=== PATIENT | female | born 1990 | race Caucasian/White ===

== ENCOUNTER 2018-08-01 13:31 | Emergency (ER) | payer SELFPAY ==
[~2018-08-01] VITALS: Ht 165.1 cm; Wt 52.2 kg
--- OUTSIDE RECORDS SUMMARY | 2018-08-01 13:37 | XMS REPORT | Continuity of Care Document ---
Author Author [facility] Address Unknown Phone Unavailable Allergies Active Description Code Type Severity Reaction Onset Reported/Identified Relationship to Patient Clinical Status Yes Penicillins Drug Allergy N/A N/A 06/21/2009 Medications There is no data. 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 Encounters ACCT No. Visit Date/Time Discharge Status Pt. Type Provider Facility Loc./Unit Complaint [id number] 03/19/2014 15:20:00 03/19/2014 23:59:59 CLS Outpatient PATRICIA BRUNO APRN
--- OUTSIDE RECORDS SUMMARY | 2018-08-01 13:37 | XMS REPORT ---
Author Author MANUEL KAUR Organization [employer] Address Unknown Phone Unavailable Care Team Providers Care Quality Assurance Project Manager Name Role Phone MANUEL KAUR CP Unavailable Allergies, Adverse Reactions, Alerts Substance Reaction Event Type Penicillin G Benzathine Info Not Available Drug Allergy Problems Problem Type Condition Code Onset Dates Condition Status Problem Counseling on substance use and abuse V65.42 Active Problem Routine gynecological examination V72.31 Active Problem Screening for malignant neoplasm of the cervix V76.2 Active Problem Screening examination for venereal disease V74.5 Active Assessment Dental examination Z01.20 Active Medications Medication Code System Code Instructions Start Date End Date Status Dosage [place] [facility] [address]-54 5-325 MG Orally every 6 hrs 1 tablet as needed Clindamycin HCl [facility] [address]-18 150 MG Orally every 6 hrs Apr 28, 2016 May 05, 2016 2 capsules Procedures Procedure Coding System Code Date INTRAORL-PERIAPICAL 1 FILM 25666 CPT-4 D0220 Apr 28, 2016 INTRAORL-PERIAPICAL EA ADD FILM CPT-4 D0230 Apr 28, 2016 LTD ORAL EVALUATION - PROBLEM FOCUS CPT-4 D0140 Apr 28, 2016 INTRAORL-PERIAPICAL EA ADD FILM CPT-4 D0230 Apr 28, 2016 Vital Signs Date/Time: Apr 28, 2016 Height 64 in Results No Known Results Summary Purpose [employer] Submission
--- NOTE | 2018-08-01 13:53 | ED EENT ---
History of Present Illness General Chief Complaint: Dental Problems/Pain Stated Complaint: MOUTH ABSCESS Nursing Triage Note: STATES SHE IS ON AMOXICILLIN FOR A WEEK DUE TO A DENTAL ABSCESS BUT STATES PAIN AND SWELLING OF THE FACE STARTED YESTERDAY. STATES SHE HAS BEEN TAKING IBUPORFEN FOR THE PAIN BUT IT IS NOT HELPING. Source: patient Exam Limitations: no limitations History of Present Illness Date Seen by Provider: Aug 01, 2018 Time Seen by Provider: 13:52 Initial Comments Patient is a 27-year-old female who presents to the emergency room with complaints of a left lower dental abscess and facial swelling. She reports that she went to [place] emergency room this morning but the wait was just long so she decided to come here. She's been on amoxicillin for 1 week due to dental abscess but she reports that yesterday she started to have left lower jaw/ facial pain and swelling in running a fever. She's been taking ibuprofen for pain but is not helping. Timing/Duration: last week Location: facial, dental Prearrival Treatment: over the counter meds, prescription meds Associated Symptoms: facial pain/swelling, fever, tooth pain Allergies and Home Medications Allergies Coded Allergies: Penicillins (Verified Allergy, Unknown, 08/01/18) Home Medications Cefuroxime Axetil 500 Mg Tablet, 500 MG PO BID Prescribed by: NUVIA FREITAS on 08/01/18 1602 Hydrocodone Bit/Acetaminophen 1 Tab Tab, 1 EACH PO Q6H PRN for PAIN-MODERATE Prescribed by: NUVIA FREITAS on 08/01/18 1602 Patient Home Medication List Home Medication List Reviewed: Yes Review of Systems Review of Systems Constitutional: see HPI, fever Eyes: No Symptoms Reported Ears: No Symptoms Reported Mouth: see HPI, pain, swelling (facial swelling) Throat: no symptoms reported Past Ldlnole-Iatlbw-Dcnkfd Hx Past Med/Social Hx: Reviewed Nursing Past Med/Soc Hx Patient Social History Recent Foreign Travel: No Contact w/Someone Who Travel: No Recent Infectious Disease Expo: No Recent Hopitalizations: No Seasonal Allergies Seasonal Allergies: No Past Medical History Surgeries: No Respiratory: No Cardiac: No Neurological: No Genitourinary: No Gastrointestinal: No Musculoskeletal: No Endocrine: No HEENT: No Cancer: No Psychosocial: No Integumentary: No Blood Disorders: No Family Medical History Reviewed Nursing Family Hx Physical Exam Vital Signs Vital Signs - First Documented 08/01/18 08/01/18 13:35 16:28 Temp 99.1 Pulse 93 Resp 16 B/P (MAP) 103/50 (67) Pulse Ox 100 O2 Delivery Room Air Height, Weight, BMI Height: 5'5.00" Weight: 115lbs. oz. 52.358076nd; BMI Method:Stated General Appearance: WD/WN, no apparent distress Eyes: bilateral eye normal inspection, bilateral eye PERRL, bilateral eye EOMI Ears: bilateral ear auricle normal, bilateral ear canal normal, bilateral ear TM normal Nose: normal inspection Mouth/Throat: pharynx normal, dental tenderness, other (numerous dental caries , absces to tooth left lower ) Neck: non-tender, full range of motion, supple, normal inspection Cardiovascular: normal peripheral pulses, regular rate, rhythm, no edema, no gallop, no JVD, no murmur Respiratory: chest non-tender, lungs clear, normal breath sounds, no respiratory distress, no accessory muscle use Neurologic/Psychiatric: alert, normal mood/affect, oriented x 3 Skin: normal color, warm/dry Progress/Results/Core Measures Results/Orders Lab Results My Orders Medications Given in ED Vital Signs/I&O Blood Pressure Mean: 67 Progress Progress Note : Time: 15:00 Progress Note I discussed the case with Dr. Whittaker and he agrees to see the patient in his office and switching the patient to ceftin for abx coverage. The patient agrees with plan of care, plans for discharge, return precautions were given. Diagnostic Imaging Diagonstic Imaging: CT Plain Films/CT/US/NM/MRI: other Comments NAME: [facility] REC#: [id number] PHYSICIAN: NUVIA FREITAS CC: NEYDA FREITAS BRUCE A MD Page 2 of 2 RADIOLOGY REPORT [facility] [place] CC: NEYDA FREITAS BRUCE A MD Page 1 of 1 RADIOLOGY REPORT NAME: [facility] REC#: [id number] PT STATUS: REG ER : 1990 PHYSICIAN: NUVIA FREITAS ADMIT DATE: 08/01/18/ER Signed Date of Exam: 08/01/18 CT NECK (SOFT TISSUE) W PROCEDURE: CT neck soft tissue with contrast. TECHNIQUE: Multiple contiguous axial images were obtained through the neck after the administration of contrast. INDICATION: Left-sided dental abscess. Antibiotic therapy x1 week. Increasing pain and swelling in the face starting yesterday. COMPARISON: None. FINDINGS: There are caries involving the left first through third mandibular molars, left second mandibular premolar, right maxillary second molar, and right first mandibular molar. There are also periapical lucencies about the left first mandibular molar and left second mandibular premolar. Periapical lucency about the right first mandibular molar. There is a peripherally enhancing fluid collection in the soft tissues about the left angle of the mouth and lateral lower lip, which measures approximately 1.0 x 0.6 x 0.8 cm. There are also mild inflammatory changes in the soft tissues about this fluid collection and anterior left mandible. There is no definite cortical breakthrough along the left mandible. The floor of the mouth, tongue base, and epiglottis are unremarkable. No retropharyngeal fluid collections. The pharyngeal and laryngeal soft tissues are symmetric bilaterally with no focal mass. Normal aerodigestive tract. No cervical lymphadenopathy. The thyroid and major salivary glands are unremarkable. The cervical carotid and vertebral arteries are grossly patent. The lung apices are clear. No acute osseous findings. The visualized paranasal sinuses, mastoids, and skull base are negative. IMPRESSION: 1. Peripherally enhancing fluid collection measuring up 1.0 cm in the soft tissues at the left angle of the mouth and lateral lower lip. Given the clinical scenario, findings are suspicious for an abscess. A cystic mass is not entirely excluded. 2. Multiple dental caries and periapical lucencies, detailed above. Dictated by: Dictated on workstation # [id number] Dict: 08/01/18 1518 Trans: 08/01/18 1618 Interpreted by: JEROMY CASTELLANO MD Electronically signed by: JEROMY CASTELLANO MD 08/01/18 1618 Reviewed: Reviewed by Me Departure Impression Primary Impression: Facial abscess Disposition: HOME, SELF-CARE Condition: Stable/Unchanged Departure-Patient Inst. Decision time for Depature: 15:57 Referrals: [facility] (PCP/Family) Primary Care Physician Patient Instructions: ABSCESS, Tooth Abscess (DC) Add. Discharge Instructions: Take medications as directed. May use additional Tylenol and ibuprofen as directed by the bottle not exceeding your daily limit of Tylenol. Follow-up with Dr. Patrice Whittaker's office tomorrow at 2:00PM for further evaluation. Return back to the emergency room for worsening symptoms or concerns as needed. All discharge instructions reviewed with patient and/or family. Voiced understanding. Scripts Hydrocodone Bit/Acetaminophen (Hydrocodone/Acetaminophen 5/325mg Tablet) 1 Tab Tab 1 EACH PO Q6H PRN for PAIN-MODERATE MDD 10, #10 TAB Prov: NUVIA FREITAS 08/01/18 Cefuroxime Axetil (Cefuroxime) 500 Mg Tablet 500 MG PO BID for 10 Days, #20 TAB Prov: NUVIA FREITAS 08/01/18 Work/School Note: Work Release Form Date Seen in the Emergency Department: Aug 01, 2018 Return to Work: Aug 03, 2018 Restrictions: No Restrictions Images Head/Face 1 - Swelling Mouth/Nose 1 - Caries, Swelling, Tenderness NUVIA FREITAS Aug 01, 2018 13:53
[2018-08-01] MEDS ORDERED: IOHEXOL 350 MG/ML 100 ML (OMNIPAQUE 350) VIAL IV ONE (14:15)
[2018-08-01] MEDS ORDERED: RECEIVED CONTRAST (Hold Metformin) IV SCH (14:15)
[2018-08-01] MEDS ORDERED: NS 250 ML (IVPB) BAG IV ONE (14:15)
[2018-08-01 14:20] LABS: BASOPHILS % (AUTO) 0 % (0-10); EOSINOPHILS % (AUTO) 0 % (0-10); HEMATOCRIT 38 % (35-52); HEMOGLOBIN 13.1 G/DL (11.5-16.0); LYMPHOCYTES # (AUTO) 0.5 X 10^3 (1.0-4.0); LYMPHOCYTES % (AUTO) 7 % (12-44); MEAN CORPUSCULAR HEMOGLOBIN 31 PG (25-34); MEAN CORPUSCULAR HGB CONC 34 G/DL (32-36); MEAN CORPUSCULAR VOLUME 90 FL (80-99); MEAN PLATELET VOLUME 9.6 FL (7.4-10.4); MONOCYTES # (AUTO) 0.3 X 10^3 (0.0-1.0); MONOCYTES % (AUTO) 5 % (0-12); NEUTROPHILS # (AUTO) 5.4 X 10^3 (1.8-7.8); NEUTROPHILS % (AUTO) 88 % (42-75); PLATELET COUNT 229 10^3/uL (130-400); RED BLOOD COUNT 4.22 10^6/uL (4.35-5.85); RED CELL DISTRIBUTION WIDTH 12.8 % (10.0-14.5); WHITE BLOOD COUNT 6.2 10^3/uL (4.3-11.0)
[2018-08-01 14:41] LABS: ALANINE AMINOTRANSFERASE 13 U/L (0-55); ALKALINE PHOSPHATASE 48 U/L (40-136); BILIRUBIN,TOTAL 0.3 MG/DL (0.1-1.0); BUN/CREATININE RATIO 10; CALCIUM 8.6 MG/DL (8.5-10.1); CARBON DIOXIDE 24 MMOL/L (21-32); CHLORIDE 106 MMOL/L (98-107); CREATININE SERUM 0.79 MG/DL (0.60-1.30); GFR ESTIMATED > 60; GLUCOSE 117 MG/DL (70-105); SODIUM 140 MMOL/L (135-145); TOTAL PROTEIN 6.3 GM/DL (6.4-8.2)
[2018-08-01 14:50] LABS: BAND NEUTROPHILS 2 %; BASOPHILS % (MANUAL) 0 %; EOSINOPHILS % (MANUAL) 0 %; LYMPHOCYTES % (MANUAL) 5 %; MONOCYTES % (MANUAL) 3 %; NEUTROPHILS % (MANUAL) 90 %; RBC MORPH NORMAL
--- NOTE | 2018-08-01 15:38 | Diagnostic Imaging Report ---
PROCEDURE: CT neck soft tissue with contrast. TECHNIQUE: Multiple contiguous axial images were obtained through the neck after the administration of contrast. INDICATION: Left-sided dental abscess. Antibiotic therapy x1 week. Increasing pain and swelling in the face starting yesterday. COMPARISON: None. FINDINGS: There are caries involving the left first through third mandibular molars, left second mandibular premolar, right maxillary second molar, and right first mandibular molar. There are also periapical lucencies about the left first mandibular molar and left second mandibular premolar. Periapical lucency about the right first mandibular molar. There is a peripherally enhancing fluid collection in the soft tissues about the left angle of the mouth and lateral lower lip, which measures approximately 1.0 x 0.6 x 0.8 cm. There are also mild inflammatory changes in the soft tissues about this fluid collection and anterior left mandible. There is no definite cortical breakthrough along the left mandible. The floor of the mouth, tongue base, and epiglottis are unremarkable. No retropharyngeal fluid collections. The pharyngeal and laryngeal soft tissues are symmetric bilaterally with no focal mass. Normal aerodigestive tract. No cervical lymphadenopathy. The thyroid and major salivary glands are unremarkable. The cervical carotid and vertebral arteries are grossly patent. The lung apices are clear. No acute osseous findings. The visualized paranasal sinuses, mastoids, and skull base are negative. IMPRESSION: 1. Peripherally enhancing fluid collection measuring up 1.0 cm in the soft tissues at the left angle of the mouth and lateral lower lip. Given the clinical scenario, findings are suspicious for an abscess. A cystic mass is not entirely excluded. 2. Multiple dental caries and periapical lucencies, detailed above. Dictated by: Dictated on workstation # [id number]
[2018-08-01] MEDS ORDERED: cefTRIAXone FOR IV USE 1,000 MG in NS (IVPB) 50 ML IV ONE (16:00)
[2018-08-01] MEDS ORDERED: ACHD5005 PO (16:02)
[2018-08-01] MEDS ORDERED: CEFU500T63 PO (16:02)
[2018-08-01 16:28] VITALS: BP 103/50
== END 2018-08-01 16:27 | disposition home or self-care (01) ==
LOC: EDUNIT# 13:31 → ER 13:32
DX: L02.01 Cutaneous abscess of face (principal); Z88.0 Allergy status to penicillin
CPT/HCPCS: 36415; 70491; 80053; 85007; 85027; 96374

== ENCOUNTER → 2021-06-14 | Outpatient (CLI) | payer MEDICAID ==
[~2021-06-14] MED LIST: ACHD5005 PO; CEFU500T63 PO
--- NOTE | 2021-06-14 17:10 | Diagnostic Imaging Report ---
INDICATION: bradycardia. FINDINGS: There is a single live fetus in a breech presentation. heart rate was recorded at 124 BPM. Amniotic fluid index is 18.6 cm. Biophysical profile was performed. Score is 8/8. IMPRESSION: Normal biophysical profile score of 8/8. Dictated by: Dictated on workstation # [id number]
== END ==
LOC: RAD 15:45
PROVIDERS: ATTEND Family Medicine
DX: O36.8390 Maternal care for abnormalities of the fetal heart rate or rhythm, unspecified trimester, not applicable or unspecified (principal); Z3A.00 Weeks of gestation of pregnancy not specified
CPT/HCPCS: 76819

== ENCOUNTER 2021-06-29 01:27 | Inpatient (IN) | payer MEDICAID ==
[2021-06-29] VITALS (11 sets, daily range): BP systolic 83–133; BP diastolic 37–70
[2021-06-29] MEDS ORDERED: ceFAZolin 2 GM IV Premixed 50 ML IV ONE (06:30)
[2021-06-29] MEDS ORDERED: LACTATED RINGERS 1,000 ML IV PRN ×4 (06:30)
[2021-06-29] MEDS ORDERED: FAMOTIDINE 20MG/2ML IV (PEPCID) IV ONE ×2 (06:30)
[2021-06-29] MEDS ORDERED: CITRIC ACID/SOB CIT (BICITRA) 30 ML UDC PO ONE ×2 (06:30)
[2021-06-29] MEDS ORDERED: METOCLOPRAMIDE INJ 10 MG/2 ML (REGLAN) IV ONE ×2 (06:30)
[2021-06-29] MEDS ORDERED: CATHETER FLUSH 10 ML SYR IV PRN ×2 (06:30)
[2021-06-29] MEDS ORDERED: fentaNYL INJ 100 MCG/2 ML AMP ONE (07:04)
[2021-06-29] MEDS ORDERED: ONDANSETRON 4 MG/2 ML (SDV) Z0FRAN ONE (07:04)
[2021-06-29] MEDS ORDERED: KETOROLAC 30 MG/ML VIAL ONE (07:04)
[2021-06-29] MEDS ORDERED: OXYTOCIN PRE-MIX DRIP 1,000 ML IV ONE (07:05)
[2021-06-29] MEDS ORDERED: BUPIVACAINE 0.25% 30 ML (SENSORCAINE) VIAL ONE (07:07)
--- NOTE | 2021-06-29 07:22 | History & Physical-OB ---
OB - Chief Complaint & HPI Date/Time Date of Admission: Date of Admission: Jun 29, 2021 at 06:05 Date seen by a Provider: Jun 29, 2021 Time Seen by a Provider: 07:10 Chief Complaint/History OB-Reason for Admission/Chief: Section Hx : 2 Hx Para: 0 Expected Date of Delivery: Jul 08, 2021 Gestational Age in Weeks: 38 Gestational Age in Days: 5 Indication for : malpresentation Admission Nurse Assessment Rev: Yes History of Labs see [facility] prenatals Allergies and Home Medications Allergies Coded Allergies: Penicillins (Verified Allergy, Unknown, 08/01/18) Patient Home Medication List Home Medication List Reviewed: Yes Cefuroxime Axetil (Cefuroxime) 500 Mg Tablet, 500 MG PO BID Prescribed by: NUVIA FREITAS on 08/01/18 160 Hydrocodone Bit/Acetaminophen (Lortab 5 Mg Tablet) 1 Tab Tab, 1 EACH PO Q6H PRN for PAIN-MODERATE Prescribed by: NUVIA FREITAS on 08/01/18 1602 OB - History Hx of Present Care: Yes Ultrasounds: Normal mid trimester US Obstetrical Complications: Gestational Diabetes Medical Complications: None Patient Past Medical History n/a Immunizations Hepatitis A: Yes Hepatitis B: Yes OB - Admission Exam Physical Exam HEENT: NCAT Heart: Rhythm Normal Lungs: Clear Abdomen: Gravid Extremities: Normal Reflexes: Normal Heart Rate: 130's Accelerations: Accelerations Present Decelerations: No Decelerations Short Term Variability: Present Care Home Variability: Average (6-25) Contractions on Admission: >10 Minutes Apart OB - Assessment/Plan/Diagnosis Assessment Assessment: section Admission Dx 30 yo @ 38.5 weeks GDM Limited care Malpresentation Admission Status: Inpatient Order (span 2 midnights) Reason for Inpatient Admission: Primary at 38 weeks Plan Plan: Section MADDY AYALA DO Jun 29, 2021 07:22
[2021-06-29 07:24] LABS: BASOPHILS % (AUTO) 0 % (0-10); EOSINOPHILS % (AUTO) 1 % (0-10); HEMATOCRIT 33 % (35-52); HEMOGLOBIN 10.6 g/dL (11.5-16.0); LYMPHOCYTES # (AUTO) 2.1 10^3/uL (1.0-4.0); LYMPHOCYTES % (AUTO) 25 % (12-44); MEAN CORPUSCULAR HEMOGLOBIN 30 pg (25-34); MEAN CORPUSCULAR HGB CONC 33 g/dL (32-36); MEAN CORPUSCULAR VOLUME 91 fL (80-99); MEAN PLATELET VOLUME 10.1 fL (9.0-12.2); MONOCYTES # (AUTO) 0.5 10^3/uL (0.0-1.0); MONOCYTES % (AUTO) 6 % (0-12); NEUTROPHILS # (AUTO) 5.6 10^3/uL (1.8-7.8); NEUTROPHILS % (AUTO) 68 % (42-75); PLATELET COUNT 275 10^3/uL (130-400); WHITE BLOOD COUNT 8.2 10^3/uL (4.3-11.0)
--- NOTE | 2021-06-29 07:26 | Discharge Inst-Women's Service ---
Discharge Inst-Women's Serv Depart Medication/Instructions New, Converted or Re-Newed RX: Transmitted to Pharmacy Final Diagnosis POD 2 PLTCS Problems Reviewed?: Yes Consults/Follow Up Additional Follow Up: Yes Orders/Referrals Dr. Shah or Lucia in 7-10 days, Dr. Genao in 6 weeks Activity Activity: Activity as Tolerated Driving Instructions: No Driving for 1 Week NO SMOKING: NO SMOKING Nothing Inside Vagina: No Douching, No [place], No Tampons Diet Discharge Diet: No Restrictions Symptoms to Report to : Bleeding Excessive, Pain Increased, Fever Over 101 Degrees F, Vaginal Bleeding Increase, Questions/Concerns For Any Problems or Questions: Contact Your Physician Skin/Wound Care Infection Signs and Symptoms: Increased Redness, Foul Odor of Wound, Increased Drainage, Skin Itchy or Has a Rash, Increased Swelling, Temperature Above 101 F Operative Area Clean and Dry: Keep Incision Clean/Dry Stitches/Becky/Dermabond: Dermabond, Care of Stitches Bathing Instructions: MADDY Auguste DO Jun 29, 2021 07:26
[2021-06-29] MEDS ORDERED: DOCU100C37 PO (07:28)
[2021-06-29] MEDS ORDERED: ACHD5005 PO (07:28)
[2021-06-29] MEDS ORDERED: IBUP-844 PO (07:28)
[2021-06-29] MEDS ORDERED: ONDANSETRON 4 MG/2 ML (SDV) Z0FRAN IVP PRN ×2 (07:30→09:15)
[2021-06-29] MEDS ORDERED: TETANUS,DIPTH,PERTUSS P/F (BOOSTRIX) 0.5 ML VIAL IM SCH (07:30)
[2021-06-29] MEDS ORDERED: NALOXONE 0.4 MG/ML 1 ML (NARCAN) VIAL IV PRN ×3 (07:30→09:15)
[2021-06-29] MEDS ORDERED: MEASLES,MUMPS,RUBELLA 1 EA INJ SC SCH (07:30)
[2021-06-29] MEDS ORDERED: METOCLOPRAMIDE INJ 10 MG/2 ML (REGLAN) IV PRN (09:15)
[2021-06-29] MEDS ORDERED: morphine INJ 10 MG/ML 1ML (SYR OR VIAL) IVP ONE (09:15)
[2021-06-29] MEDS ORDERED: ONDANSETRON 4 MG/2 ML (SDV) Z0FRAN IV PRN (09:15)
[2021-06-29] MEDS ORDERED: diphenhydrAMINE 50 MG/ML INJ (BENADRYL) IV PRN (09:15)
[2021-06-29] MEDS ORDERED: diphenhydrAMINE 25 MG TAB (BENADRYL) PO PRN (11:00)
[2021-06-29] MEDS: OXYTOCIN PRE-MIX DRIP 500 ML IV SCH ×2 (11:00→14:58)
[2021-06-29] MEDS: KETOROLAC 30 MG/ML VIAL IV SCH ×2 (13:01→20:02)
[2021-06-29] MEDS: CATHETER FLUSH 10 ML SYR IV SCH ×2 (13:01→20:03)
[2021-06-29] MEDS: DOCUSATE SODIUM 100 MG (COLACE) CAP PO SCH ×2 (13:01→20:02)
[2021-06-29] MEDS: HYDROcodone/APAP 5 MG/325 MG (LORTAB) TAB PO PRN (14:51)
--- NOTE | 2021-06-29 15:11 | OPERATIVE REPORT ---
DATE OF SERVICE: PREOPERATIVE DIAGNOSES: 1. A 30-year-old G2, P0 at 38 weeks and 5 days' gestation. 2. Malpresentation. POSTOPERATIVE DIAGNOSES: 1. A 30-year-old G2, P0 at 38 weeks and 5 days' gestation. 2. Malpresentation. 3. Benoit breech presentation. PROCEDURE: Primary low transverse section. SURGEON: Maninder Ayala DO ANESTHESIA: Spinal. ESTIMATED BLOOD LOSS: 300 mL. URINE OUTPUT: 150 mL clear at the end of the procedure. FLUIDS: 1600 mL of lactated Ringer's solution. FINDINGS: A live female weighing 5 pounds 10 ounces, Apgars of 3, 5, and then 9 at 10 minutes. Grossly normal appearing uterus, bilateral fallopian tubes and ovaries. SPECIMEN SENT: Placenta. INDICATIONS FOR PROCEDURE: This 30-year-old female patient who is consulted to me from the [facility], that had limited care and missed multiple appointments. She was diagnosed with gestational diabetes and her ability to check her blood sugars consistently was not adequate. When I saw her in the office, she still has not been checking her blood sugars as instructed. Discussed with the patient delivery at 38 weeks due to unknown control of diabetes as well as breech presentation, we discussed proceeding with . After all of her questions were answered, consent was obtained in the preoperative area, the patient was taken to the operating room. OPERATIVE REPORT IN DETAIL: Once in the operating room, anesthesia was found to be adequate, placed in supine position with leftward tilt, prepped and draped in normal sterile fashion. Timeout was performed and anesthesia was tested. I then make a Pfannenstiel skin incision with a knife and carried down to underlying fascia using Bovie cautery. The fascial incision extended laterally using Bovie cautery. Superior aspect of fascial incision was then grasped with Dieudonne clamps, tented up and dissected off the underlying rectus muscles. The inferior aspect of fascial incision was then grasped with Dieudonne clamps, tented up and dissected off the underlying rectus muscles. Rectus muscles were then dissected down the midline, which exposed the peritoneum, which I entered bluntly and extended using blunt traction. Prosper ring retractor was placed in the peritoneal incision, which offers excellent lateral sidewall retraction. I identified the lower uterine segment, which was found to be thinned out and make a low transverse incision to the vesicouterine peritoneum and bluntly dissected off the lower uterine segment, creating a bladder flap. I then proceeded with my myotomy until membranes were visualized, at which point I extended the uterine incision laterally and superiorly using bandage scissors. Amniotomy was then performed using an Allis clamp. Clear fluid was noted. was found in the breech presentation. With gentle fundal pressure, the buttocks and legs are delivered up to the upper torso. The infant was then placed facing downward where I delivered the arms by sweeping them across the chest. I then elevate the infant's body and delivered the head through the incision by flexion of the head. The nares and oropharynx were then bulb suctioned. The cord was doubly clamped and cut and was handed off to waiting nurses in attendance. Cord blood was collected, 3-vessel cord with intact placenta was delivered spontaneously thereafter. IV Pitocin was initiated to facilitate uterine contraction. Uterine fundus confirmed by manual massage. Uterus was then exteriorized and cleared of all endometrial clots and debris. I then proceeded with closing the uterine incision using 0 Vicryl suture in running locked fashion. Second layer of imbricating 0 Monocryl was placed. Excellent hemostasis was noted after doing this. I then placed the uterus back in the pelvis and copiously irrigated the pelvis using normal saline. Once again inspected and noted from any of my dissection planes, I placed Interceed antiadhesive over my low transverse incision. I removed the Prosper ring retractor and proceeded with closing the peritoneum using 3-0 Vicryl suture in a running fashion. The rectus muscles were reapproximated using 3-0 Vicryl suture in interrupted fashion. The fascia was reapproximated using 0 Vicryl suture in running fashion. The subcutaneous tissue was reapproximated using 3-0 plain interrupted subcutaneous stitch and skin reapproximated using 4-0 Monocryl running subcuticular. Dermabond was applied to incision and sterile dressing with adhesive white tape. The patient tolerated the procedure well and sent to recovery area in stable condition. Lap and sponge counts were correct at the end of the procedure. Instrument counts correct as well. Two grams of Ancef were given preoperatively for infection prophylaxis. Job ID: [id number] DocumentID: [id number] Dictated Date: 06/29/2021 08:40:52 Workers' Compensation Magistrate Date: 06/29/2021 15:11:00 Dictated By: MANINDER AYALA DO
[2021-06-30] VITALS (7 sets, daily range): BP systolic 125–144; BP diastolic 58–90
[2021-06-30] MEDS: KETOROLAC 30 MG/ML VIAL IV SCH ×2 (00:01→05:15)
[2021-06-30] MEDS ORDERED: IBUPROFEN 600 MG (MOTRIN) TAB PO ONE (01:42)
[2021-06-30] MEDS: IBUPROFEN 600 MG (MOTRIN) TAB PO SCH ×3 (01:46→18:33)
[2021-06-30] MEDS: HYDROcodone/APAP 5 MG/325 MG (LORTAB) TAB PO PRN ×4 (01:47→21:17)
[2021-06-30] MEDS: CATHETER FLUSH 10 ML SYR IV SCH ×2 (05:15→15:46)
[2021-06-30 06:40] LABS: BASOPHILS % (AUTO) 0 % (0-10); EOSINOPHILS # (AUTO) 0.1 10^3/uL (0.0-0.3); EOSINOPHILS % (AUTO) 0 % (0-10); HEMATOCRIT 32 % (35-52); HEMOGLOBIN 10.4 g/dL (11.5-16.0); LYMPHOCYTES # (AUTO) 1.9 10^3/uL (1.0-4.0); LYMPHOCYTES % (AUTO) 16 % (12-44); MEAN CORPUSCULAR HEMOGLOBIN 30 pg (25-34); MEAN CORPUSCULAR HGB CONC 33 g/dL (32-36); MEAN CORPUSCULAR VOLUME 91 fL (80-99); MEAN PLATELET VOLUME 10.5 fL (9.0-12.2); MONOCYTES # (AUTO) 0.4 10^3/uL (0.0-1.0); MONOCYTES % (AUTO) 3 % (0-12); NEUTROPHILS # (AUTO) 9.3 10^3/uL (1.8-7.8); NEUTROPHILS % (AUTO) 80 % (42-75); PLATELET COUNT 223 10^3/uL (130-400); WHITE BLOOD COUNT 11.7 10^3/uL (4.3-11.0)
[2021-06-30] MEDS: DOCUSATE SODIUM 100 MG (COLACE) CAP PO SCH ×2 (08:57→21:16)
--- NOTE | 2021-06-30 09:43 | Postpartum Progress Note ---
Note Note Day # 1 Subjective: Patient is without complaints. Ambulating, voiding. Tolerating a regular diet without nausea or vomiting. Normal lochia. Pain is well controlled with oral pain medications. Objective: Physical Exam: General - Alert and oriented, no apparent distress Abdomen - Soft, appropriately tender to palpation, non-distended, fundus firm at umbilicus; incision c/d/i Extremities - no edema, negative Leena's bilaterally Assessment: Post- day # 1, status post PLTCS for breech presentation. Recovering well, hemodynamically stable Acute blood loss anemia Plan: Routine care. Encourage breast feeding. Encourage ambulation. Ferrous sulfate supplementation. Plan for discharge tomorrow Vitals - Labs Vital Signs - I&O Vital Signs Date Time Temp Pulse Resp B/P (MAP) Pulse Ox O2 Delivery O2 Flow Rate FiO2 06/30/21 05:38 36.6 67 18 125/58 (80) 96 Room Air 06/30/21 02:00 36.6 64 16 125/66 (85) 98 Room Air 06/29/21 22:00 36.4 73 18 130/63 (85) 98 Room Air 06/29/21 14:45 36.5 62 16 133/60 (84) 98 Room Air 06/29/21 14:29 Room Air 06/29/21 10:02 36.0 53 16 93/57 (69) 99 Room Air 06/29/21 09:50 Room Air 06/29/21 09:40 36.1 18 124/59 (80) 98 Room Air I & O 06/30/21 06:59 Intake Total 2040 ml Output Total 200 ml Balance 1840 ml Labs Laboratory Tests 06/30/21 06:07: White Blood Count 11.7H, Red Blood Count 3.48L, Hemoglobin 10.4L, Hematocrit 32L , Mean Corpuscular Volume 91, Mean Corpuscular Hemoglobin 30, Mean Corpuscular Hemoglobin Concent 33, Red Cell Distribution Width 14.5, Platelet Count 223, Mean Platelet Volume 10.5, Immature Granulocyte % (Auto) 0, Neutrophils (%) (Auto) 80H, Lymphocytes (%) (Auto) 16, Monocytes (%) (Auto) 3, Eosinophils (%) (Auto) 0, Basophils (%) (Auto) 0, Neutrophils # (Auto) 9.3H, Lymphocytes # (Auto) 1.9, Monocytes # (Auto) 0.4, Eosinophils # (Auto) 0.1, Basophils # (Auto) 0.0, Immature Granulocyte # (Auto) 0.0 KELLEE NOLEN APRN Jun 30, 2021 09:43
--- NOTE | 2021-06-30 15:03 | Anesthesia-Regional Post-Op ---
Regional Patient Condition Mental Status: Alert, Oriented x3 Circulation: Same as Pre-Op Headache: Absent Sensation: Full Recovery Motor Block: Absent Post Op Complications Complications None Follow Up Care/Instructions Patient Instructions None needed. Anesthesia/Patient Condition Patient is doing well, no complaints, stable vital signs, no apparent adverse anesthesia problems. No complications reported per nursing. JUANCHO MELISSA CRNA Jun 30, 2021 15:03
[2021-07-01] MEDS: IBUPROFEN 600 MG (MOTRIN) TAB PO SCH ×3 (00:02→13:01)
[2021-07-01 04:09] VITALS: BP 129/77
--- NOTE | 2021-07-01 09:45 | Postpartum Progress Note ---
Note Note Day # 2 Subjective: Patient is without complaints. Ambulating, voiding. Tolerating a regular diet without nausea or vomiting. Normal lochia. Pain is well controlled with oral pain medications. Objective: Physical Exam: General - Alert and oriented, no apparent distress Abdomen - Soft, appropriately tender to palpation, non-distended, fundus firm at umbilicus; incision c/d/i Extremities - no edema, negative Leena's bilaterally Assessment: Post- day #2, status post PLTCS for breech presentation. Recovering well, hemodynamically stable Acute blood loss anemia Plan: Routine care. Encourage breast feeding. Encourage ambulation. Ferrous sulfate supplementation. Plan for discharge today Vitals - Labs Vital Signs - I&O Vital Signs Date Time Temp Pulse Resp B/P (MAP) Pulse Ox O2 Delivery O2 Flow Rate FiO2 07/01/21 04:09 36.1 62 18 129/77 (94) 98 Room Air 06/30/21 23:59 36.6 63 18 134/78 (96) 99 Room Air 06/30/21 21:11 36.5 78 20 131/71 (91) 98 Room Air 06/30/21 16:00 36.5 92 20 144/90 (108) 97 Room Air 06/30/21 12:20 36.4 73 16 128/74 (92) 96 Room Air KELLEE NOLEN APRN Jul 01, 2021 09:45
[2021-07-01] MEDS: DOCUSATE SODIUM 100 MG (COLACE) CAP PO SCH (10:24)
[2021-07-01 10:25] VITALS: BP 142/71
[2021-07-01] MEDS: HYDROcodone/APAP 5 MG/325 MG (LORTAB) TAB PO PRN (10:33)
[2021-07-02] MEDS ORDERED: ACHD5005 PO (11:50)
== END 2021-07-01 15:15 | disposition home or self-care (01) | DRG 787 ==
LOC: LDRP 06:05
PROVIDERS: ADMIT Obstetrics & Gynecology; ATTEND Obstetrics & Gynecology
PROC: 10D00Z1 Extraction of Products of Conception, Low, Open Approach (ICD-10-PCS; principal; 2021-06-29 07:33)
DX: O32.1XX0 Maternal care for breech presentation, not applicable or unspecified (principal); D62 Acute posthemorrhagic anemia; Z3A.38 38 weeks gestation of pregnancy; Z37.0 Single live birth; O24.429 Gestational diabetes mellitus in childbirth, unspecified control; O90.81 Anemia of the puerperium
CPT/HCPCS: 36415; 83033; 85025; 86850; 86900; 86901; 94664